=== PATIENT | female | born 1960 | race Caucasian/White ===

== ENCOUNTER 2021-01-03 08:34 | Outpatient (CLI) | payer OTHER ==
[~2021-01-03 08:34] MED LIST: ASCO500T93 PO; CALC-780 PO; CHOL10003 PO; FEXO1TAB29 PO; TRAM50TA2 PO; [UNRECOGNIZED DRUG - OTHER] PO
[2021-01-03] MEDS ORDERED: DIPH25CA81 PO (09:36)
[2021-01-03] MEDS ORDERED: SIME125C PO (09:36)
[2021-01-03] MEDS ORDERED: NAPR220C2 PO (09:36)
== END 2021-01-03 23:59 | disposition home or self-care (01) ==
LOC: STAR 08:34
PROVIDERS: ATTEND Internal Medicine Gastroenterology
DX: Z20.822 Contact with and (suspected) exposure to COVID-19 (principal); K85.90 Acute pancreatitis without necrosis or infection, unspecified
CPT/HCPCS: 87635

== ENCOUNTER → 2021-01-07 | Day surgery (SDC) | payer OTHER ==
[~2021-01-07] VITALS: Ht 162.6 cm; Wt 80.1 kg
[~2021-01-07] MED LIST changes: +ACETAMINOPHEN 325 MG TABLET PO PRN; +CHLORHEXIDINE 15 ML UDC MM ONE; +DIPH25CA81 PO; +FENTANYL PF 100 MCG/2ML IV PRN; +GLYCOPYRROLATE 0.2MG/1ML, 5ML ONE; +HALOPERIDOL 5 MG/ML IV PRN; +HYDROmorphone 1 MG/ML, 1ML INJ IVPush PRN; +LABETALOL 5MG/ML, 20ML IV PRN; +LACTATED RINGERS 1,000 ML IV SCH; +MEPERIDINE/PF 25MG/0.5ML IVPush PRN; +NAPR220C2 PO; +NEOSTIGMINE 1 MG/ML, 10ML ONE; +ONDANSETRON 2MG/ML, 2ML ONE; +OXYcodone 5 MG/5 ML ORAL.SOL UDC PO PRN; +PROMETHAZINE 25 MG/ML, 1ML IVPush PRN; +PROPOFOL 10 MG/ML, 20ML ONE; +ROCURONIUM 10MG/ML,5ML ONE; +SCOPOLAMINE 1MG PATCH TD ONE; +SIME125C PO; +SUGAMMADEX 200 MG/2 ML IVPush ONE; +hydrALAzine 20 MG/ML, 1ML IV PRN; +morphine SULFATE 10 MG/ML, 1ML IVPush PRN; +tylenol PO
[2021-01-07 13:57] VITALS: BP 126/85
== END | disposition home or self-care (01) ==
LOC: OUT 13:01
PROVIDERS: ATTEND Internal Medicine Gastroenterology
DX: K85.80 Other acute pancreatitis without necrosis or infection (principal); K57.10 Diverticulosis of small intestine without perforation or abscess without bleeding; Z79.899 Other long term (current) drug therapy; Z91.013 Allergy to seafood
CPT/HCPCS: 43239; 43259; 88305; J2405; J2704; J2710; J7120